=== PATIENT | female | born 1955 | race Caucasian/White ===

== ENCOUNTER → 2017-02-23 | Outpatient (CLI) | payer OTHER | LOC: FIMAGING 13:48 | PROVIDERS: ATTEND Internal Medicine | DX: M81.0 Age-related osteoporosis without current pathological fracture (principal) ==

== ENCOUNTER → 2017-03-04 | Outpatient (CLI) | payer OTHER | LOC: FIMAGING 15:45 | PROVIDERS: ATTEND Internal Medicine | DX: Z12.31 Encounter for screening mammogram for malignant neoplasm of breast (principal) | CPT/HCPCS: G0202 ==

== ENCOUNTER 2017-08-11 11:21 | Emergency (ER) | payer OTHER ==
[2017-08-11 11:28] VITALS: BP 133/83; PULSE 63; RESP 17; TEMP 98.1; O2SAT 97
--- NOTE | 2017-08-11 12:46 | EDPHY ---
H & P Time Seen by Provider: 08/11/17 12:03 HPI/ROS: CHIEF COMPLAINT: Cough HISTORY OF PRESENT ILLNESS: 61-year-old female presents to the emergency department by private vehicle with ongoing cough over last for 5 days. Patient is concerned because she is traveling internationally next week and wants to be evaluated. She has no history of pneumonia. She did not receive a flu shot this year. She is also concerned because her is 16 years older than her and was recently hospitalized for heart condition. She denies pain in her chest or difficulty breathing. She did have a headache that began 4-5 days ago however this has since resolved since she stop taking NyQuil. No rash. No neck pain. No back pain. No abdominal pain or vomiting. REVIEW OF SYSTEMS: Constitutional: No fever, no chills. Eyes: No double or blurry vision. ENT: No sore throat. Respiratory: Cough. no shortness of breath. Cardiac: No chest pain. Gastrointestinal: No abdominal pain, vomiting or diarrhea. Genitourinary: No dysuria. Musculoskeletal: No neck or back pain. Skin: No rashes. Neurological: No headache. Past Medical/Surgical History: Negative Social History: Smoking Status: Never smoked Physical Exam: General Appearance: Alert, no distress. 36.7, 97% on room air. 133/83 Eyes: Pupils equal and round. Extraocular motions are all intact. ENT: Mouth: Mucous membranes moist. Respiratory: No wheezing, rhonchi, or rales, lungs are clear to auscultation. Cardiovascular: Regular rate and rhythm. Gastrointestinal: Abdomen is soft and nontender, no masses, no rebound or guarding, bowel sounds normal. Neurological: Alert and oriented x 3, cranial nerves II through XII grossly intact Skin: Warm and dry, no rashes. Musculoskeletal: Nontender to palpate along the cervical, thoracic or lumbar spine. Neck is supple. Extremities: Full range of motion and no peripheral edema. Psychiatric: Patient is oriented X 3, there is no agitation. Constitutional: Initial Vital Signs Temperature (C) 36.7 C 08/11/17 11:25 Heart Rate 63 08/11/17 11:25 Respiratory Rate 17 08/11/17 11:25 Blood Pressure 133/83 H 08/11/17 11:25 O2 Sat (%) 97 08/11/17 11:25 O2 Delivery Mode Room Air Allergies/Adverse Reactions: No Known Allergies Allergy (Verified 08/11/17 11:28) Home Medications: Medication Instructions Recorded NK [No Known Home Meds] 08/11/17 Medical Decision Making - Diagnostics Imaging Results: Imaging Impressions Chest X-Ray 08/11/17 12:39 Impression: No pneumonia. Imaging: I viewed and interpreted images myself ED Course/Re-evaluation: Positive for influenza B. RSV was negative. Chest x-ray reveals no signs of pneumonia. I offered Tamiflu and the patient declined. I did encourage her who is much older with a heart condition to talk with his primary care provider, Raphael Allen, regarding taking Tamiflu prophylactically. Patient was instructed to return to the emergency department if she felt short of breath, if she developed pain in her chest, fevers, or if she felt worse in any way. Differential Diagnosis: Including but not limited to influenza, bronchitis, pneumonia, viral upper respiratory infection - Data Points Laboratory Results: 08/11/17 12:45 Nasal Influenza A PCR NEGATIVE FOR FLU A (NEGATIVE) Nasal Influenza B PCR FLU B DETECTED H (NEGATIVE) RSV (PCR) NEGATIVE FOR RSV (NEGATIVE) Departure - Departure Disposition: Home, Routine, Self-Care Clinical Impression: Influenza B Condition: Good Instructions: Influenza (ED) Additional Instructions: Adult Pain & Fever Control: We recommend Acetaminophen (Tylenol) and Ibuprofen (Motrin,Advil) for pain and fever control. When fever is high or pain severe, both drugs can be used at the same time, but at different intervals. Please note the time differences. Your dose is: Acetaminophen 1000mg every 4 to 6 hours Ibuprofen 600mg every 8 hours with food Note: do not take Acetaminophen with Hydrocodone (Vicodin, Lortab) or Oycodone (Percocet). These medications also contain Acetaminophen. No more than 3000mg of Acetaminophen should be taken in 24 hours (for an adult). Referrals: Hung Turner MD [place] [place] - 2-3 days, if not improved ( Primary care provider nutritionalist)
== END 2017-08-11 14:11 | disposition home or self-care (01) ==
DX: J10.1 Influenza due to other identified influenza virus with other respiratory manifestations (principal)

== ENCOUNTER → 2018-03-07 | Outpatient (CLI) | payer OTHER | LOC: FIMAGING 16:17 | PROVIDERS: ATTEND Family Medicine | DX: Z12.31 Encounter for screening mammogram for malignant neoplasm of breast (principal) ==

== ENCOUNTER → 2018-03-15 | Outpatient (CLI) | payer OTHER | LOC: FIMAGING 16:10 | PROVIDERS: ATTEND Family Medicine | DX: Z13.83 Encounter for screening for respiratory disorder NEC (principal); Z87.891 Personal history of nicotine dependence ==